=== PATIENT | female | born 1940 | race Caucasian/White ===

== ENCOUNTER → 2021-01-21 | Outpatient (CLI) | payer OTHER ==
[2021-01-22 07:13] LABS: RHEUMATOID ARTHRITIS FACTOR <10.0 IU/mL (0.0-13.9); VITAMIN D, 25-HYDROXY 58.2 ng/mL (30.0-100.0)
== END ==
LOC: LAB 11:37
PROVIDERS: Nurse Practitioner Family
DX: M79.641 Pain in right hand (principal); M79.642 Pain in left hand; M25.50 Pain in unspecified joint; E55.9 Vitamin D deficiency, unspecified
CPT/HCPCS: 36415; 73130; 81001; 82570; 83520; 84156; 85652; 86140; 86200; 86431

== ENCOUNTER → 2021-11-14 | Outpatient (CLI) | payer OTHER | LOC: KOH-I 15:09 | DX: M79.672 Pain in left foot (principal); M79.671 Pain in right foot; M79.89 Other specified soft tissue disorders | CPT/HCPCS: 73610; 73630 ==

== ENCOUNTER → 2021-11-15 | Outpatient (CLI) | payer OTHER | LOC: KOH-I 13:32 | DX: M14.671 Charcot's joint, right ankle and foot (principal) | CPT/HCPCS: 73700 ==

== ENCOUNTER → 2021-11-18 | Outpatient (CLI) | payer OTHER ==
[~2021-11-18] VITALS: Ht 160 cm; Wt 73.0 kg
== END ==
LOC: OPSV 08:00
DX: G62.89 Other specified polyneuropathies (principal)
CPT/HCPCS: 96365; 96366; J2430; J7030

== ENCOUNTER → 2021-12-31 | Outpatient (CLI) | payer OTHER | LOC: KOH-I 12:47 | DX: M25.571 Pain in right ankle and joints of right foot (principal); M19.071 Primary osteoarthritis, right ankle and foot | CPT/HCPCS: 73610; 73630 ==

== ENCOUNTER → 2022-01-21 | Outpatient (CLI) | payer OTHER | LOC: KOH-I 13:55 | DX: M79.671 Pain in right foot (principal); A52.16 Charcot's arthropathy (tabetic) | CPT/HCPCS: 73630 ==